=== PATIENT | male | born 1970 | race African-American/Black ===

== ENCOUNTER 2025-06-07 02:42 | Inpatient (IN) | payer MEDICAID ==
[~2025-06-07] VITALS: Ht 175.3 cm; Wt 65.3 kg
[2025-06-07] VITALS (79 sets, daily range): BP systolic 79–108; BP diastolic 52–72; PULSE 89–106; RESP 8–33; TEMP 37–38.2; O2SAT 97–100
[2025-06-07] MEDS: SODIUM CHLORIDE 0.9% (SEPSIS BOLUS) IV ONE (03:25)
[2025-06-07] MEDS: PIPERACILLIN/TAZO 3.375G/50ML 50 ML IV ONE (03:35)
[2025-06-07 04:06] LABS: BASOPHILS % 0.5 % (0.0-2.0); EOSINOPHILS % 0.0 % (0.0-5.0); HEMATOCRIT. 30.8 % (42.0-52.0); HEMOGLOBIN. 9.3 g/dL (14.0-18.0); LYMPHOCYTES % 9.8 % (20.0-50.0); MEAN PLATELET VOLUME 12.0 fl (7.4-10.4); MONOCYTES % 4.8 % (2.0-8.0); NEUTROPHILS % 84.9 % (40.0-76.0); PLATELET 306 x1000/uL (130-400); RED BLOOD CELL COUNT 3.30 mill/uL (4.7-6.1); RED CELL DISTRIBUTION WIDTH 18.0 % (11.6-14.6)
[2025-06-07 04:24] LABS: INR 1.1
[2025-06-07 04:25] LABS: CREATININE 1.5 mg/dL (0.6-1.3)
[2025-06-07 04:26] LABS: BG BASE EXCESS -0.5 mmol/L (-2.0-3.0); BG CARBOXYHEMOGLOBIN 0.3 % (0.5-1.5); BG DEOXYHEMOGLOBIN 4.6 % (0.0-5.0); BG FRACTION INSPIRED OXYGEN 50; BG HCO3 ACT 24.6 mmol/L (21.0-28.0); BG METHEMOGLOBIN 0.3 % (0.5-1.5); BG OXYGEN SATURATION 95.4 % (94.0-98.0); BG OXYHEMOGLOBIN 94.8 % (94.0-98.0); BG PCO2 41.9 mmHg (35.0-48.0); BG PEEP (cmH2O) 5.0 cmH2O; BG PH 7.386 (7.350-7.450); BG PO2 81.4 mmHg (83.0-108.0); BG SAMPLE SITE LEFT BRACHIAL; BG TIDAL VOLUME(mL) 450.0 mL; BG TOTAL HEMOGLOBIN 8.8 g/dL (13.5-17.5); BG VENT MODE VENT - AC; BG VENT RATE 16.0 set
[2025-06-07 04:28] LABS: ASPARTATE AMINOTRANSFERASE 649 IU/L (<34); BILIRUBIN DIRECT < 0.1 mg/dL (<=3.0); BILIRUBIN TOTAL 0.2 mg/dL (0.1-1.0); PROTEIN TOTAL 7.0 g/dL (6.0-8.3)
[2025-06-07 04:32] LABS: TROPONIN I HIGH SENSITIVITY 56 ng/L (3.0-53)
[2025-06-07 04:33] LABS: UREA NITROGEN BLOOD 112 mg/dL (9-23)
[2025-06-07] MEDS: VANCOMYCIN 1G PREMIX 200 ML IV ONE (04:57)
[2025-06-07] MEDS ORDERED: NOREPINEPHRINE 8MG/250ML PMX 250 ML IV PRN (05:00)
[2025-06-07] MEDS: NOREPINEPHRINE 8MG/250ML PMX 250 ML IV SCH (05:11)
[2025-06-07] MEDS: VASOPRESSIN 20 UNIT in SODIUM CHLORIDE 0.9% 99 ML IV SCH (05:36)
[2025-06-07] MEDS: IPRATROPIUM/ALBUTEROL 0.5-3(2.5)MG/3ML NEB HHN SCH (08:25)
[2025-06-07] MEDS ORDERED: CLONIDINE 0.1MG TABLET PO PRN (10:00)
[2025-06-07] MEDS ORDERED: MAGNESIUM/ALUMINUM HYDROXIDE/SIMETHICONE 30ML UDC PO PRN (10:00)
[2025-06-07] MEDS ORDERED: ONDANSETRON HCL 4MG/2ML INJ IV PRN (10:00)
[2025-06-07] MEDS: PIPERACILLIN/TAZO 3.375G/50ML 50 ML IV SCH (10:41)
[2025-06-07] MEDS: SODIUM CHLORIDE 0.9% 1,000 ML IV SCH (10:42)
[2025-06-07 11:09] LABS: CLARITY URINE TURBID (CLEAR); COLOR URINE DARK YELLOW (YELLOW); GLUCOSE URINE NEGATIVE (NEGATIVE); KETONES URINE TRACE (NEGATIVE); LEUKOCYTE ESTERASE URINE 2+ (NEGATIVE); NITRITE URINE NEGATIVE (NEGATIVE); OCCULT BLOOD URINE 3+ (NEGATIVE); PH URINE 5.0 (4.5-8.0); PROTEIN URINE 2+ (NEGATIVE); SPECIFIC GRAVITY URINE 1.020 (1.005-1.030); UROBILINOGEN URINE 1.0 E.U./dL (0.2-1.0)
[2025-06-07 11:27] LABS: SQUAMOUS EPITHELIAL CELL URINE FEW /lpf (RARE/1+)
[2025-06-07 11:29] LABS: BACTERIA URINE 3+; WBC URINE 25-50 /hpf (0-2)
[2025-06-07 13:03] LABS: *AMPHETAMINES SCREEN URINE NEGATIVE (NEGATIVE); *BARBITURATES SCREEN URINE PRESUMPTIVE POSITIVE (NEGATIVE); *BENZODIAZEPINES SCREEN URINE NEGATIVE (NEGATIVE); *COCAINE SCREEN URINE NEGATIVE (NEGATIVE); CANNABINOID URINE SCREEN NEGATIVE (NEGATIVE); ECSTASY MDMA SCREEN URINE NEGATIVE (NEGATIVE); METHADONE URINE SCREEN NEGATIVE (NEGATIVE); OPIATES URINE SCREEN NEGATIVE (NEGATIVE); PHENCYCLIDINE URINE SCREEN NEGATIVE (NEGATIVE)
[2025-06-07] MEDS ORDERED: PIPERACILLIN/TAZO 3.375G/50ML 50 ML IV SCH (14:00)
[2025-06-07] MEDS ORDERED: PHENYLEPHRINE 50 MG in DEXT 5% WATER 245 ML IV PRN (14:15)
[2025-06-07] MEDS: PHENYLEPHRINE 50MG/250ML PMX IV PRN (16:24)
[2025-06-07] MEDS: ACETAMINOPHEN 325MG TABLET PO PRN (20:34)
[2025-06-08] VITALS (107 sets, daily range): BP systolic 75–107; BP diastolic 42–78; PULSE 73–94; RESP 14–24; TEMP 35.9–37.1; O2SAT 89–100
[2025-06-08] MEDS: ACETYLCYSTEINE 200MG/ML 20% VIAL 4ML INH SCH (02:23)
[2025-06-08] MEDS: VANCOMYCIN 750MG PMX (XELLIA) 150 ML IV SCH ×2 (05:30→18:08)
[2025-06-08 06:14] LABS: BASOPHILS % 0.4 % (0.0-2.0); EOSINOPHILS % 0.0 % (0.0-5.0); HEMATOCRIT. 24.0 % (42.0-52.0); HEMOGLOBIN. 7.3 g/dL (14.0-18.0); LYMPHOCYTES % 8.0 % (20.0-50.0); MEAN PLATELET VOLUME 12.1 fl (7.4-10.4); MONOCYTES % 3.1 % (2.0-8.0); NEUTROPHILS % 88.5 % (40.0-76.0); PLATELET 248 x1000/uL (130-400); RED BLOOD CELL COUNT 2.56 mill/uL (4.7-6.1); RED CELL DISTRIBUTION WIDTH 18.0 % (11.6-14.6)
[2025-06-08] MEDS: HYDROCODONE/ACETAMINOPHEN 5/325MG TABLET PO PRN (06:32)
[2025-06-08 06:34] LABS: CREATININE 1.1 mg/dL (0.6-1.3)
[2025-06-08 06:36] LABS: ASPARTATE AMINOTRANSFERASE 126 IU/L (<34); BILIRUBIN DIRECT 0.1 mg/dL (<=3.0); BILIRUBIN TOTAL 0.2 mg/dL (0.1-1.0)
[2025-06-08 06:37] LABS: PROTEIN TOTAL 6.1 g/dL (6.0-8.3)
[2025-06-08 06:42] LABS: UREA NITROGEN BLOOD 117 mg/dL (9-23)
[2025-06-08 07:39] LABS: HEPATITIS A AB IGM NEGATIVE (Negative)
[2025-06-08 07:40] LABS: HEPATITIS B CORE AB IGM NEGATIVE (Negative); HEPATITIS C AB NON REACTIVE (Neg) (Negative)
[2025-06-08 08:08] LABS: INFLUENZA TYPE A Presumptive Negative (Pres. Neg.)
[2025-06-08 08:09] LABS: INFLUENZA TYPE B Presumptive Negative (Pres. Neg.)
[2025-06-08 08:10] LABS: RESPIRATORY SYNCYTIAL VIRUS Not Detected (Not Detectd)
[2025-06-08 08:49] LABS: PHOSPHORUS 6.6 mg/dL (2.5-4.9)
[2025-06-08] MEDS: KCL 20MEQ/100ML PREMIX 100 ML IV SCH (08:59)
[2025-06-08] MEDS: PANTOPRAZOLE SODIUM 40 MG/VIAL IV SCH (08:59)
[2025-06-08] MEDS: DEXT 5%/0.45% NACL KCL 20MEQ/L 1,000 ML IV SCH (08:59)
[2025-06-08] MEDS ORDERED: NALOXONE HCL 0.4MG/ML VIAL IV PRN (12:45)
[2025-06-08] MEDS: SODIUM HYPOCHLORITE 0.125% 473ML SOLUTION TOP SCH (14:12)
[2025-06-08] MEDS: CLOTRIMAZOLE/BETAMETHASONE 1/0.05% CREAM 15GM TOP SCH (14:12)
[2025-06-08] MEDS: NEOMY SULF/BACITRAC ZN/POLY OINT 28GM TOP SCH (14:12)
[2025-06-08 18:34] LABS: PLATELET 254 x1000/uL (130-400); RED BLOOD CELL COUNT 2.90 mill/uL (4.7-6.1); RED CELL DISTRIBUTION WIDTH 18.8 % (11.6-14.6)
[2025-06-09] VITALS (98 sets, daily range): BP systolic 79–134; BP diastolic 49–78; PULSE 75–108; RESP 15–37; TEMP 36.5–37.1; O2SAT 94–100
[2025-06-09] MEDS: MORPHINE SULFATE 2 MG/ML INJ (NOT FOR IM USE) IV PRN (01:24)
[2025-06-09] MEDS: ZOLPIDEM TARTRATE 5MG TABLET PO PRN (02:35)
[2025-06-09 05:50] LABS: HEMATOCRIT. 23.7 % (42.0-52.0); HEMOGLOBIN. 7.1 g/dL (14.0-18.0); MEAN PLATELET VOLUME 12.0 fl (7.4-10.4); PLATELET 236 x1000/uL (130-400); RED BLOOD CELL COUNT 2.55 mill/uL (4.7-6.1); RED CELL DISTRIBUTION WIDTH 18.1 % (11.6-14.6)
[2025-06-09 06:02] LABS: CREATININE 0.9 mg/dL (0.6-1.3)
[2025-06-09 06:04] LABS: ASPARTATE AMINOTRANSFERASE 37 IU/L (<34); UREA NITROGEN BLOOD 100 mg/dL (9-23)
[2025-06-09 06:05] LABS: BILIRUBIN DIRECT 0.1 mg/dL (<=3.0); PHOSPHORUS 5.3 mg/dL (2.5-4.9)
[2025-06-09 06:06] LABS: BILIRUBIN TOTAL 0.3 mg/dL (0.1-1.0); PROTEIN TOTAL 5.4 g/dL (6.0-8.3)
[2025-06-09 06:46] LABS: HEPATITIS A AB IGM NEGATIVE (Negative)
[2025-06-09 06:47] LABS: HEPATITIS B CORE AB IGM NEGATIVE (Negative); HEPATITIS C AB NON REACTIVE (Neg) (Negative)
[2025-06-09] MEDS: POTASSIUM CHLORIDE 20MEQ/PACKET PO SCH (08:31)
[2025-06-09] MEDS: CALCIUM ACETATE 667MG CAPSULE PO SCH (08:31)
[2025-06-09] MEDS: POTASSIUM CHLORIDE 40 MEQ in DEXTROSE 5% WATER 980 ML IV SCH (09:44)
[2025-06-09 11:43] LABS: BAND% 13.0 % (1.0-6.0); LYMPHOCYTES % MANUAL 1.0 % (20.0-50.0); MONOCYTES % MANUAL 1.0 % (2.0-8.0); NEUTROPHILS % MANUAL 85.0 % (45.0-75.0); PLATELET ESTIMATE NORMAL
[2025-06-09] MEDS: MEROPENEM 1G/100ML IV SCH (15:12)
[2025-06-10] VITALS (94 sets, daily range): BP systolic 79–124; BP diastolic 54–80; PULSE 78–110; RESP 14–34; TEMP 36.7–37.33632; O2SAT 90–100
[2025-06-10] MEDS: ACETAMINOPHEN 650MG/20.3ML UDC PO PRN (01:51)
[2025-06-10 06:20] LABS: HEMATOCRIT. 21.9 % (42.0-52.0); MEAN PLATELET VOLUME 11.5 fl (7.4-10.4); PLATELET 217 x1000/uL (130-400); RED BLOOD CELL COUNT 2.32 mill/uL (4.7-6.1); RED CELL DISTRIBUTION WIDTH 17.4 % (11.6-14.6)
[2025-06-10 06:25] LABS: CREATININE 0.7 mg/dL (0.6-1.3)
[2025-06-10 06:26] LABS: UREA NITROGEN BLOOD 70 mg/dL (9-23)
[2025-06-10 06:27] LABS: ASPARTATE AMINOTRANSFERASE 18 IU/L (<34)
[2025-06-10 06:28] LABS: BILIRUBIN DIRECT 0.2 mg/dL (<=3.0); BILIRUBIN TOTAL 0.3 mg/dL (0.1-1.0); PROTEIN TOTAL 5.6 g/dL (6.0-8.3)
[2025-06-10 07:05] LABS: HEPATITIS A AB IGM NEGATIVE (Negative)
[2025-06-10 07:06] LABS: HEPATITIS B CORE AB IGM NEGATIVE (Negative); HEPATITIS C AB NON REACTIVE (Neg) (Negative)
[2025-06-10 07:12] LABS: HEMOGLOBIN. 6.7 g/dL (14.0-18.0)
[2025-06-10 10:22] LABS: BAND% 14.0 % (1.0-6.0); LYMPHOCYTES % MANUAL 2.0 % (20.0-50.0); MONOCYTES % MANUAL 5.0 % (2.0-8.0); NEUTROPHILS % MANUAL 79.0 % (45.0-75.0); PLATELET ESTIMATE NORMAL
[2025-06-10] MEDS ORDERED: VANCOMYCIN 750MG PMX (XELLIA) 150 ML IV SCH (18:00)
[2025-06-10] MEDS: MIDODRINE HCL 5MG TABLET PO SCH (20:25)
[2025-06-11] VITALS (63 sets, daily range): BP systolic 84–139; BP diastolic 61–95; PULSE 80–118; RESP 17–50; TEMP 36.5–37.9; O2SAT 93–100
[2025-06-11] MEDS: DEXT 5%/0.45% NACL KCL 40MEQ/L 1,000 ML IV SCH (01:49)
[2025-06-11 07:26] LABS: CREATININE 0.5 mg/dL (0.6-1.3); UREA NITROGEN BLOOD 50 mg/dL (9-23)
[2025-06-11 07:28] LABS: ASPARTATE AMINOTRANSFERASE 15 IU/L (<34); BILIRUBIN DIRECT 0.1 mg/dL (<=3.0); BILIRUBIN TOTAL 0.2 mg/dL (0.1-1.0); PHOSPHORUS 3.5 mg/dL (2.5-4.9); PROTEIN TOTAL 5.6 g/dL (6.0-8.3)
[2025-06-11 07:52] LABS: HEPATITIS A AB IGM NEGATIVE (Negative)
[2025-06-11 07:53] LABS: HEPATITIS B CORE AB IGM NEGATIVE (Negative); HEPATITIS C AB NON REACTIVE (Neg) (Negative)
[2025-06-11] MEDS: FOLIC ACID/VITAMIN B COMP W-C TABLET PO SCH (08:29)
[2025-06-11] MEDS: SULBACTAM IV SCH (22:05)
[2025-06-11] MEDS: SENNOSIDES/DOCUSATE SOD 8.6/50MG TABLET GT SCH (22:05)
[2025-06-11] MEDS: MEROPENEM 1G/100ML IV SCH (22:05)
[2025-06-11] MEDS: SODIUM CHLORIDE 0.9% IV SCH (22:05)
[2025-06-11] MEDS: AMPICILLIN IV SCH (22:05)
[2025-06-11] MEDS: PANTOPRAZOLE SODIUM 40 MG/VIAL IV SCH (22:05)
[2025-06-12] VITALS (67 sets, daily range): BP systolic 96–157; BP diastolic 66–96; PULSE 79–121; RESP 16–53; TEMP 36.9–37.4; O2SAT 91–100
[2025-06-12 04:41] LABS: HEMATOCRIT. 22.7 % (42.0-52.0); HEMOGLOBIN. 7.1 g/dL (14.0-18.0); MEAN PLATELET VOLUME 9.9 fl (7.4-10.4); PLATELET 298 x1000/uL (130-400); RED BLOOD CELL COUNT 2.39 mill/uL (4.7-6.1); RED CELL DISTRIBUTION WIDTH 18.0 % (11.6-14.6)
[2025-06-12 04:55] LABS: CREATININE 0.4 mg/dL (0.6-1.3)
[2025-06-12 04:56] LABS: UREA NITROGEN BLOOD 34 mg/dL (9-23)
[2025-06-12 04:58] LABS: FOLIC ACID (FOLATE) SERUM > 20.00 ng/mL (>5.38); PHOSPHORUS 2.9 mg/dL (2.5-4.9); VITAMIN B12 SERUM 1360 pg/mL (211-911)
[2025-06-12] MEDS: DEXTROSE 5% WATER 1,000 ML IV SCH (09:16)
[2025-06-12] MEDS: MEROPENEM 1G/100ML IV SCH (09:16)
[2025-06-12] MEDS: MAGNESIUM 2 G PREMIX 50 ML IV NR (09:16)
[2025-06-12 09:22] LABS: BG BASE EXCESS -1.9 mmol/L (-2.0-3.0); BG CARBOXYHEMOGLOBIN 2.3 % (0.5-1.5); BG DEOXYHEMOGLOBIN 1.3 % (0.0-5.0); BG FRACTION INSPIRED OXYGEN 40; BG HCO3 ACT 23.6 mmol/L (21.0-28.0); BG METHEMOGLOBIN 0.4 % (0.5-1.5); BG OXYGEN SATURATION 98.7 % (94.0-98.0); BG OXYHEMOGLOBIN 96.0 % (94.0-98.0); BG PCO2 43.7 mmHg (35.0-48.0); BG PEEP (cmH2O) 5.0 cmH2O; BG PH 7.350 (7.350-7.450); BG PO2 114.9 mmHg (83.0-108.0); BG SAMPLE SITE RIGHT RADIAL; BG TIDAL VOLUME(mL) 450.0 mL; BG TOTAL HEMOGLOBIN 6.7 g/dL (13.5-17.5); BG VENT MODE VENT - AC; BG VENT RATE 16.0 set
[2025-06-12 11:40] LABS: BAND% 8.0 % (1.0-6.0); LYMPHOCYTES % MANUAL 2.0 % (20.0-50.0); MONOCYTES % MANUAL 4.0 % (2.0-8.0); NEUTROPHILS % MANUAL 86.0 % (45.0-75.0); PLATELET ESTIMATE NORMAL
[2025-06-12] MEDS ORDERED: NON FORMULARY MED XX SCH (13:00)
[2025-06-12] MEDS: IRON SUCROSE COMPLEX 100 MG/5 ML ML IV SCH (13:30)
[2025-06-12] MEDS: MORPHINE SULFATE 2 MG/ML INJ (NOT FOR IM USE) IV SCH (15:28)
[2025-06-12 15:33] LABS: HEMATOCRIT. 25.8 % (42.0-52.0); HEMOGLOBIN. 8.0 g/dL (14.0-18.0); MEAN PLATELET VOLUME 9.2 fl (7.4-10.4); PLATELET 367 x1000/uL (130-400); RED BLOOD CELL COUNT 2.87 mill/uL (4.7-6.1); RED CELL DISTRIBUTION WIDTH 23.1 % (11.6-14.6)
[2025-06-12 15:52] LABS: EOSINOPHILS % MANUAL 1.0 % (0.0-5.0); LYMPHOCYTES % MANUAL 5.0 % (20.0-50.0); MONOCYTES % MANUAL 6.0 % (2.0-8.0); NEUTROPHILS % MANUAL 88.0 % (45.0-75.0); PLATELET ESTIMATE NORMAL
[2025-06-13] VITALS (58 sets, daily range): BP systolic 100–159; BP diastolic 66–103; PULSE 79–109; RESP 17–33; TEMP 36.6–37.3; O2SAT 91–100
[2025-06-13] MEDS: MORPHINE SULFATE 2 MG/ML INJ (NOT FOR IM USE) IV PRN (01:02)
[2025-06-13 06:10] LABS: CREATININE 0.4 mg/dL (0.6-1.3)
[2025-06-13 06:11] LABS: UREA NITROGEN BLOOD 23 mg/dL (9-23)
[2025-06-13 06:12] LABS: PHOSPHORUS 3.1 mg/dL (2.5-4.9)
[2025-06-13 09:54] LABS: HEMATOCRIT. 23.8 % (42.0-52.0); HEMOGLOBIN. 7.5 g/dL (14.0-18.0); MEAN PLATELET VOLUME 9.0 fl (7.4-10.4); PLATELET 418 x1000/uL (130-400); RED BLOOD CELL COUNT 2.67 mill/uL (4.7-6.1); RED CELL DISTRIBUTION WIDTH 21.9 % (11.6-14.6)
[2025-06-13 11:22] LABS: BAND% 7.0 % (1.0-6.0); LYMPHOCYTES % MANUAL 5.0 % (20.0-50.0); MONOCYTES % MANUAL 4.0 % (2.0-8.0); NEUTROPHILS % MANUAL 84.0 % (45.0-75.0); PLATELET ESTIMATE SLIGHTLY INCREASED
[2025-06-14] VITALS (23 sets, daily range): BP systolic 123–148; BP diastolic 78–89; PULSE 99–135; RESP 21–30; TEMP 36.7–39.6; O2SAT 92–100
[2025-06-14] MEDS: METOPROLOL TARTRATE 5MG/5ML VIAL IV NR (05:51)
[2025-06-14] MEDS: METOPROLOL TARTRATE 25MG TABLET PO SCH (08:35)
[2025-06-14 10:15] LABS: HEMATOCRIT. 24.1 % (42.0-52.0); HEMOGLOBIN. 7.7 g/dL (14.0-18.0); MEAN PLATELET VOLUME 8.7 fl (7.4-10.4); PLATELET 520 x1000/uL (130-400); RED BLOOD CELL COUNT 2.73 mill/uL (4.7-6.1); RED CELL DISTRIBUTION WIDTH 20.8 % (11.6-14.6)
[2025-06-14 10:26] LABS: CREATININE 0.4 mg/dL (0.6-1.3)
[2025-06-14 10:27] LABS: UREA NITROGEN BLOOD 19 mg/dL (9-23)
[2025-06-14 11:33] LABS: BAND% 13.0 % (1.0-6.0); LYMPHOCYTES % MANUAL 3.0 % (20.0-50.0); MONOCYTES % MANUAL 2.0 % (2.0-8.0); NEUTROPHILS % MANUAL 82.0 % (45.0-75.0); PLATELET ESTIMATE INCREASED
[2025-06-14] MEDS: DILTIAZEM HCL 5MG/ML 5ML VIAL IV SCH (16:18)
[2025-06-14] MEDS: DILTIAZEM HCL 30MG TABLET GT SCH (19:49)
[2025-06-15] VITALS (22 sets, daily range): BP systolic 105–123; BP diastolic 69–80; PULSE 78–100; RESP 16–26; TEMP 36.5–37.5; O2SAT 92–100
[2025-06-15 11:18] LABS: BG BASE EXCESS 7.6 mmol/L (-2.0-3.0); BG CARBOXYHEMOGLOBIN 0.6 % (0.5-1.5); BG DEOXYHEMOGLOBIN 1.4 % (0.0-5.0); BG FRACTION INSPIRED OXYGEN 40; BG HCO3 ACT 32.4 mmol/L (21.0-28.0); BG METHEMOGLOBIN 0.0 % (0.5-1.5); BG OXYGEN SATURATION 98.6 % (94.0-98.0); BG OXYHEMOGLOBIN 98.0 % (94.0-98.0); BG PCO2 48.5 mmHg (35.0-48.0); BG PEEP (cmH2O) 5.0 cmH2O; BG PH 7.443 (7.350-7.450); BG PO2 120.5 mmHg (83.0-108.0); BG SAMPLE SITE RIGHT RADIAL; BG TIDAL VOLUME(mL) 450.0 mL; BG TOTAL HEMOGLOBIN 6.9 g/dL (13.5-17.5); BG VENT MODE VENT - AC; BG VENT RATE 16.0 set
[2025-06-15 17:52] LABS: BASOPHILS % 0.5 % (0.0-2.0); EOSINOPHILS % 0.3 % (0.0-5.0); LYMPHOCYTES % 8.5 % (20.0-50.0); MEAN PLATELET VOLUME 8.7 fl (7.4-10.4); MONOCYTES % 4.9 % (2.0-8.0); NEUTROPHILS % 85.8 % (40.0-76.0); PLATELET 469 x1000/uL (130-400); RED BLOOD CELL COUNT 2.33 mill/uL (4.7-6.1); RED CELL DISTRIBUTION WIDTH 21.1 % (11.6-14.6)
[2025-06-15 17:55] LABS: HEMATOCRIT. 20.9 % (42.0-52.0); HEMOGLOBIN. 6.5 g/dL (14.0-18.0)
[2025-06-15 17:56] LABS: CREATININE 0.4 mg/dL (0.6-1.3)
[2025-06-15 17:57] LABS: UREA NITROGEN BLOOD 17 mg/dL (9-23)
[2025-06-15] MEDS: DEXTROSE 5% WATER 1,000 ML IV SCH (22:11)
[2025-06-16] VITALS (30 sets, daily range): BP systolic 99–137; BP diastolic 60–122; PULSE 10–82; RESP 20–27; TEMP 36.4–37.3; O2SAT 96–99
[2025-06-16 07:37] LABS: BASOPHILS % 0.6 % (0.0-2.0); EOSINOPHILS % 0.2 % (0.0-5.0); LYMPHOCYTES % 8.7 % (20.0-50.0); MEAN PLATELET VOLUME 8.5 fl (7.4-10.4); MONOCYTES % 5.1 % (2.0-8.0); NEUTROPHILS % 85.4 % (40.0-76.0); PLATELET 438 x1000/uL (130-400); RED BLOOD CELL COUNT 2.26 mill/uL (4.7-6.1); RED CELL DISTRIBUTION WIDTH 20.8 % (11.6-14.6)
[2025-06-16 07:56] LABS: CREATININE 0.3 mg/dL (0.6-1.3); UREA NITROGEN BLOOD 18 mg/dL (9-23)
[2025-06-16 08:28] LABS: HEMATOCRIT. 19.9 % (42.0-52.0); HEMOGLOBIN. 6.4 g/dL (14.0-18.0)
[2025-06-16] MEDS ORDERED: POTASSIUM CHLORIDE 40 MEQ in DEXT 5% WATER 230 ML IV ONE (08:45)
[2025-06-16] MEDS ORDERED: POTASSIUM CHLORIDE 20 MEQ in DEXT 5% WATER 90 ML IV ONE (08:45)
[2025-06-16] MEDS: KCL 20MEQ/100ML PREMIX 100 ML IV NR (10:14)
[2025-06-16] MEDS: KCL 20MEQ/100ML X 2 FOR TOTAL KCL 40MEQ/200ML IV SCH (12:01)
[2025-06-16 14:13] LABS: PHOSPHORUS 3.1 mg/dL (2.5-4.9)
[2025-06-16 19:11] LABS: CREATININE 0.3 mg/dL (0.6-1.3); UREA NITROGEN BLOOD 13 mg/dL (9-23)
[2025-06-16] MEDS: EPOETIN ALFA 10,000 UNITS/ML VIAL SUBCUT SCH (22:02)
[2025-06-17] VITALS (24 sets, daily range): BP systolic 114–156; BP diastolic 80–104; PULSE 73–94; RESP 16–30; TEMP 36.3–37.9; O2SAT 91–100
[2025-06-17] MEDS ORDERED: KCL 20MEQ/100ML PREMIX 100 ML IV SCH (01:00)
[2025-06-17] MEDS: KCL 20MEQ/100ML PREMIX 100 ML IV SCH (01:59)
[2025-06-17 06:08] LABS: BASOPHILS % 0.4 % (0.0-2.0); EOSINOPHILS % 0.5 % (0.0-5.0); HEMATOCRIT. 25.3 % (42.0-52.0); HEMOGLOBIN. 8.3 g/dL (14.0-18.0); LYMPHOCYTES % 8.5 % (20.0-50.0); MEAN PLATELET VOLUME 9.0 fl (7.4-10.4); MONOCYTES % 4.5 % (2.0-8.0); NEUTROPHILS % 86.1 % (40.0-76.0); PLATELET 448 x1000/uL (130-400); RED BLOOD CELL COUNT 2.91 mill/uL (4.7-6.1); RED CELL DISTRIBUTION WIDTH 19.6 % (11.6-14.6)
[2025-06-17 06:36] LABS: CREATININE 0.3 mg/dL (0.6-1.3)
[2025-06-17 06:37] LABS: UREA NITROGEN BLOOD 13 mg/dL (9-23)
[2025-06-17 09:19] LABS: BG BASE EXCESS 9.6 mmol/L (-2.0-3.0); BG CARBOXYHEMOGLOBIN 1.2 % (0.5-1.5); BG DEOXYHEMOGLOBIN 4.2 % (0.0-5.0); BG FRACTION INSPIRED OXYGEN 50; BG HCO3 ACT 34.3 mmol/L (21.0-28.0); BG METHEMOGLOBIN 0.1 % (0.5-1.5); BG OXYGEN SATURATION 95.7 % (94.0-98.0); BG OXYHEMOGLOBIN 94.5 % (94.0-98.0); BG PCO2 48.3 mmHg (35.0-48.0); BG PEEP (cmH2O) 5.0 cmH2O; BG PH 7.469 (7.350-7.450); BG PO2 79.7 mmHg (83.0-108.0); BG SAMPLE SITE RIGHT RADIAL; BG TIDAL VOLUME(mL) 450.0 mL; BG TOTAL HEMOGLOBIN 8.6 g/dL (13.5-17.5); BG VENT MODE VENT - AC; BG VENT RATE 20.0 set
[2025-06-17] MEDS: POTASSIUM CHLORIDE 20MEQ/PACKET PO SCH (09:24)
[2025-06-18] VITALS (16 sets, daily range): BP systolic 108–144; BP diastolic 70–95; PULSE 73–93; RESP 20–30; TEMP 36.2–37.2; O2SAT 96–100
[2025-06-18 05:52] LABS: CREATININE 0.3 mg/dL (0.6-1.3)
[2025-06-18 05:53] LABS: UREA NITROGEN BLOOD 9 mg/dL (9-23)
[2025-06-18 06:00] LABS: BASOPHILS % 0.6 % (0.0-2.0); EOSINOPHILS % 0.4 % (0.0-5.0); HEMATOCRIT. 25.0 % (42.0-52.0); HEMOGLOBIN. 8.3 g/dL (14.0-18.0); LYMPHOCYTES % 12.8 % (20.0-50.0); MEAN PLATELET VOLUME 9.0 fl (7.4-10.4); MONOCYTES % 5.4 % (2.0-8.0); NEUTROPHILS % 80.8 % (40.0-76.0); PLATELET 469 x1000/uL (130-400); RED BLOOD CELL COUNT 2.86 mill/uL (4.7-6.1); RED CELL DISTRIBUTION WIDTH 19.2 % (11.6-14.6)
[2025-06-18 09:16] LABS: BG BASE EXCESS 8.8 mmol/L (-2.0-3.0); BG CARBOXYHEMOGLOBIN 0.1 % (0.5-1.5); BG DEOXYHEMOGLOBIN 1.9 % (0.0-5.0); BG FRACTION INSPIRED OXYGEN 40; BG HCO3 ACT 34.2 mmol/L (21.0-28.0); BG METHEMOGLOBIN 0.3 % (0.5-1.5); BG OXYGEN SATURATION 98.1 % (94.0-98.0); BG OXYHEMOGLOBIN 97.7 % (94.0-98.0); BG PCO2 52.8 mmHg (35.0-48.0); BG PEEP (cmH2O) 5.0 cmH2O; BG PH 7.429 (7.350-7.450); BG PO2 107.5 mmHg (83.0-108.0); BG SAMPLE SITE RIGHT RADIAL; BG TIDAL VOLUME(mL) 450.0 mL; BG TOTAL HEMOGLOBIN 8.5 g/dL (13.5-17.5); BG TOTAL RESPIRATORY RATE 26 b/min; BG VENT MODE VENT - AC; BG VENT RATE 20.0 set
== END 2025-06-18 14:27 | DRG 720 ==
LOC: ER 02:42 → MICUNO 04:59 → EDBEDREQSVC 05:04 → EDBEDREQTM 05:04 → EDBEDREQ 05:04 → CANRESERV 05:06 → ENRESERV 05:06 → 5EST 06-14
PROVIDERS: ADMIT Internal Medicine; ATTEND Internal Medicine
PROC: 5A1955Z Respiratory Ventilation, Greater than 96 Consecutive Hours (ICD-10-PCS; principal; 2025-06-07)
PROC: 02HV33Z Insertion of Infusion Device into Superior Vena Cava, Percutaneous Approach (ICD-10-PCS; 2025-06-07)
PROC: B548ZZA Ultrasonography of Superior Vena Cava, Guidance (ICD-10-PCS; 2025-06-07)
PROC: 30243N1 Transfusion of Nonautologous Red Blood Cells into Central Vein, Percutaneous Approach (ICD-10-PCS; 2025-06-10)
DX: A41.51 Sepsis due to Escherichia coli [E. coli] (principal); N17.0 Acute kidney failure with tubular necrosis; R65.21 Severe sepsis with septic shock; J96.21 Acute and chronic respiratory failure with hypoxia; G82.50 Quadriplegia, unspecified; G93.40 Encephalopathy, unspecified; J69.0 Pneumonitis due to inhalation of food and vomit; J15.61 Pneumonia due to Acinetobacter baumannii; L89.894 Pressure ulcer of other site, stage 4; L89.154 Pressure ulcer of sacral region, stage 4; E87.20 Acidosis, unspecified; E87.0 Hyperosmolality and hypernatremia; L89.626 Pressure-induced deep tissue damage of left heel; L89.616 Pressure-induced deep tissue damage of right heel; L89.896 Pressure-induced deep tissue damage of other site; L89.226 Pressure-induced deep tissue damage of left hip; K94.23 Gastrostomy malfunction; E86.9 Volume depletion, unspecified; E87.6 Hypokalemia; L85.3 Xerosis cutis; N39.0 Urinary tract infection, site not specified; J44.0 Chronic obstructive pulmonary disease with (acute) lower respiratory infection; J44.1 Chronic obstructive pulmonary disease with (acute) exacerbation; I21.A1 Myocardial infarction type 2; B96.20 Unspecified Escherichia coli [E. coli] as the cause of diseases classified elsewhere; D75.839 Thrombocytosis, unspecified; N18.9 Chronic kidney disease, unspecified; E83.42 Hypomagnesemia; I12.9 Hypertensive chronic kidney disease with stage 1 through stage 4 chronic kidney disease, or unspecified chronic kidney disease; R74.01 Elevation of levels of liver transaminase levels; R73.9 Hyperglycemia, unspecified; R16.0 Hepatomegaly, not elsewhere classified; Z16.12 Extended spectrum beta lactamase (ESBL) resistance; Z20.822 Contact with and (suspected) exposure to COVID-19; Z99.11 Dependence on respirator [ventilator] status
CPT/HCPCS: 31720; 36415; 36600; 71045; 76700; 80048; 80076; 80202; 80305; 81003; 82248; 82270; 82375; 82607; 82746; 82805; 83540; 83550; 83605; 83735; 84100; 84145; 84443; 84484; 85014; 85018; 85025; 85027; 85044; 86705; 86709; 86850; 86900; 86920; 87070; 87077; 87106; 87186; 87340; 87420; 87426; 87804; 93005; 93970; 94002; 94003; 94070; 94640; 94664; 98960; 99291; A4606; J0295; J2185; J2270; J2371; J2470; J2543; J3373; J3475; J3480; J3490; J7030; J7050; J7060; J7070; J7608; P9016